=== PATIENT | male | born 1965 | race Caucasian/White ===

== ENCOUNTER 2018-03-14 08:54 | Emergency (ER) | payer OTHER ==
[~2018-03-14] VITALS: Ht 182.8 cm; Wt 96.2 kg
[2018-03-14] MEDS ORDERED: Motrin,Rufen800 MG PO (09:51)
== END 2018-03-14 10:03 | disposition home or self-care (01) ==
LOC: ED 08:54
DX: S46.911A Strain of unspecified muscle, fascia and tendon at shoulder and upper arm level, right arm, initial encounter (principal); X50.1XXA Overexertion from prolonged static or awkward postures, initial encounter; Y93.89 Activity, other specified; Y92.89 Other specified places as the place of occurrence of the external cause; Y99.8 Other external cause status

== ENCOUNTER → 2018-04-07 | Outpatient (CLI) | payer OTHER ==
[~2018-04-07] MED LIST: Motrin,Rufen800 MG PO
== END | disposition home or self-care (01) ==
LOC: MRI 09:00
DX: S43.401A Unspecified sprain of right shoulder joint, initial encounter (principal); S46.011A Strain of muscle(s) and tendon(s) of the rotator cuff of right shoulder, initial encounter; M19.011 Primary osteoarthritis, right shoulder; X58.XXXA Exposure to other specified factors, initial encounter; Y93.89 Activity, other specified; Y99.8 Other external cause status; Y92.89 Other specified places as the place of occurrence of the external cause

== ENCOUNTER → 2020-01-08 | Outpatient (CLI) | payer SELFPAY | END | disposition home or self-care (01) | LOC: COVID19 11:52 | PROVIDERS: ATTEND Nurse Practitioner Family | DX: Z20.828 Contact with and (suspected) exposure to other viral communicable diseases (principal) ==

== ENCOUNTER 2021-09-09 04:28 | Emergency (ER) | payer OTHER ==
[~2021-09-09] VITALS: Ht 172.7 cm; Wt 90.7 kg
== END 2021-09-09 04:59 | disposition home or self-care (01) ==
LOC: ED 04:28
DX: M25.561 Pain in right knee (principal)

== ENCOUNTER 2021-10-30 05:17 | Emergency (ER) | payer OTHER ==
[~2021-10-30] VITALS: Ht 180.3 cm; Wt 81.6 kg
[2021-10-30] MEDS ORDERED: ZITHROMAX250 MG PO (06:46)
[2021-10-30] MEDS ORDERED: PREDNISONE20 M1 PO (06:46)
== END 2021-10-30 06:48 | disposition home or self-care (01) ==
LOC: ED 05:17
DX: J40 Bronchitis, not specified as acute or chronic (principal); Z20.822 Contact with and (suspected) exposure to COVID-19

== ENCOUNTER 2022-02-26 08:53 | Emergency (ER) | payer OTHER ==
[~2022-02-26] VITALS: Ht 180.3 cm; Wt 91.6 kg
[~2022-02-26 08:53] MED LIST changes: +PREDNISONE20 M1 PO; +ZITHROMAX250 MG PO
[2022-02-26] MEDS ORDERED: LISINOPRIL5 MG PO (09:06)
[2022-02-26] MEDS ORDERED: IBU800 M2 PO (09:17)
[2022-02-26] MEDS ORDERED: CLINDAMYCIN HC300 MG PO (09:17)
== END 2022-02-26 09:27 | disposition home or self-care (01) ==
LOC: ED 08:53
DX: K02.9 Dental caries, unspecified (principal)

== ENCOUNTER 2023-01-12 22:04 | Emergency (ER) | payer OTHER ==
[~2023-01-12] VITALS: Ht 182.8 cm; Wt 97.5 kg
[~2023-01-12 22:04] MED LIST changes: +CLINDAMYCIN HC300 MG PO; +IBU800 M2 PO; +LISINOPRIL5 MG PO
[2023-01-12] MEDS ORDERED: Lopressor25 MG PO (22:14)
== END 2023-01-13 00:20 | disposition home or self-care (01) ==
LOC: ED 22:04
DX: J06.9 Acute upper respiratory infection, unspecified (principal); I10 Essential (primary) hypertension; R11.0 Nausea; R19.7 Diarrhea, unspecified; Z20.822 Contact with and (suspected) exposure to COVID-19

== ENCOUNTER 2023-04-17 10:22 | Emergency (ER) | payer OTHER ==
[~2023-04-17] VITALS: Ht 180.3 cm; Wt 95.3 kg
[~2023-04-17 10:22] MED LIST changes: +Lopressor25 MG PO
[2023-04-17] MEDS ORDERED: Ketorolac Tromethamine 30 MG/ML VIAL IM ONE (10:45)
[2023-04-17] MEDS ORDERED: Cyclobenzaprine Hydrochlorid 10 MG TAB PO ONE (10:45)
[2023-04-17] MEDS ORDERED: Acetaminophen/Oxycodone 5 MG/325 MG TABLET PO ONE (10:45)
[2023-04-17] MEDS ORDERED: MELOXICAM15 MG PO (10:48)
[2023-04-17] MEDS ORDERED: CYCLOBENZAPRINE10 MG PO (10:48)
== END 2023-04-17 10:55 | disposition home or self-care (01) ==
LOC: ED 10:22
DX: M54.50 Low back pain, unspecified (principal); I10 Essential (primary) hypertension

== ENCOUNTER 2023-06-14 08:28 | Emergency (ER) | payer OTHER ==
[~2023-06-14] VITALS: Ht 182.8 cm; Wt 95.3 kg
[~2023-06-14 08:28] MED LIST changes: +CYCLOBENZAPRINE10 MG PO; +MELOXICAM15 MG PO
[2023-06-14] MEDS ORDERED: CIPROFLOXACIN H10 ML OPH (08:58)
== END 2023-06-14 09:04 | disposition home or self-care (01) ==
LOC: ED 08:28
DX: H10.9 Unspecified conjunctivitis (principal); I10 Essential (primary) hypertension

== ENCOUNTER 2023-07-06 12:37 | Emergency (ER) | payer OTHER ==
[~2023-07-06] VITALS: Ht 182.8 cm; Wt 94.8 kg
[~2023-07-06 12:37] MED LIST changes: +CIPROFLOXACIN H10 ML OPH
[2023-07-06] MEDS ORDERED: methylPREDNISolone sod succ 125 MG VIAL IM ONE (14:35)
[2023-07-06] MEDS ORDERED: CYCLOBENZAPRINE10 MG PO (16:05)
== END 2023-07-06 16:28 | disposition home or self-care (01) ==
LOC: ED 12:37
DX: S16.1XXA Strain of muscle, fascia and tendon at neck level, initial encounter (principal); Z79.2 Long term (current) use of antibiotics; Z79.899 Other long term (current) drug therapy; X58.XXXA Exposure to other specified factors, initial encounter; Y93.89 Activity, other specified; Y92.89 Other specified places as the place of occurrence of the external cause; Y99.8 Other external cause status

== ENCOUNTER 2023-07-14 09:06 | Emergency (ER) | payer OTHER ==
[~2023-07-14] VITALS: Ht 182.8 cm; Wt 94.8 kg
[2023-07-14] MEDS ORDERED: Ondansetron 4 MG 2 TAB ED PACK PO SCH (10:05)
[2023-07-14] MEDS ORDERED: Lactated Ringer's Solution 1,000 ML IV ONE (10:05)
[2023-07-14 10:17] LABS: BASO # 0.1 10*3/uL (0.0-0.1); BASO % 0.7 % (0.0-1.0); EOS # 0.3 10*3/uL (0.0-0.4); EOS % 3.2 % (1.0-4.0); HEMATOCRIT 44.9 % (42.0-52.0); LYMPH # 3.8 10*3/uL (1.3-4.4); MEAN CELL VOLUME 94.5 fl (80.0-94.0); MEAN CORPUSCULAR HGB 32.8 pg (27.0-31.0); MEAN CORPUSCULAR HGB CONC 34.7 g/dl (33.0-37.0); MEAN PLATELET VOLUME 11.2 fl (9.6-12.3); MONO # 0.5 10*3/uL (0.1-1.0); MONO % 6.2 % (3.0-9.0); NEUT # 4.1 10*3/uL (2.3-7.9); NEUT % 46.7 % (47.0-73.0); PLATELET COUNT AUTOMATED 182 10*3/uL (130-400); RED BLOOD COUNT 4.75 10*6/uL (4.50-5.90); RED CELL DISTRI WIDTH 12.5 % (0-14.5); WHITE BLOOD COUNT 8.8 10*3/uL (4.8-10.8)
[2023-07-14 10:38] LABS: ALKALINE PHOSPHATASE 112 U/L (46-116); BUN 12 mg/dl (9-23); CHLORIDE 106 mmol/L (98-107); POTASSIUM 4.1 mmol/L (3.4-5.1); SGPT/ALT 69 U/L (5-49); TOTAL PROTEIN 6.6 gm/dL (6.0-8.0)
== END 2023-07-14 11:41 | disposition home or self-care (01) ==
LOC: ED 09:06
PROVIDERS: Emergency Medicine
DX: R11.2 Nausea with vomiting, unspecified (principal); R19.7 Diarrhea, unspecified; R10.9 Unspecified abdominal pain; F17.200 Nicotine dependence, unspecified, uncomplicated; Z79.2 Long term (current) use of antibiotics; Z79.899 Other long term (current) drug therapy

== ENCOUNTER 2023-11-01 17:04 | Emergency (ER) | payer OTHER ==
[~2023-11-01] VITALS: Wt 95.3 kg
[2023-11-01] MEDS ORDERED: LISINOPRIL5 MG PO (19:02)
[2023-11-01] MEDS ORDERED: Metoprolol Tartrate 25 MG TAB PO ONE (19:05)
[2023-11-02] MEDS ORDERED: LISINOPRIL 5 MG TAB PO SCH (10:00)
== END 2023-11-01 19:34 | disposition home or self-care (01) ==
LOC: ED 17:04
DX: Z76.0 Encounter for issue of repeat prescription (principal); R51.9 Headache, unspecified; I10 Essential (primary) hypertension; M19.90 Unspecified osteoarthritis, unspecified site; Z88.8 Allergy status to other drugs, medicaments and biological substances; Z98.890 Other specified postprocedural states

== ENCOUNTER 2024-02-22 08:37 | Emergency (ER) | payer OTHER ==
[~2024-02-22] VITALS: Ht 182.8 cm; Wt 95.3 kg
[2024-02-22] MEDS ORDERED: Acetaminophen/Oxycodone 5 MG/325 MG TABLET PO ONE (09:25)
[2024-02-22] MEDS ORDERED: TRAMADOL HCL50 MG PO (09:43)
== END 2024-02-22 10:09 | disposition home or self-care (01) ==
LOC: ED 08:37
DX: M17.0 Bilateral primary osteoarthritis of knee (principal); M25.562 Pain in left knee; M25.561 Pain in right knee; I10 Essential (primary) hypertension; Z88.8 Allergy status to other drugs, medicaments and biological substances; Z98.890 Other specified postprocedural states

== ENCOUNTER 2024-03-19 20:08 | Emergency (ER) | payer OTHER ==
[~2024-03-19] VITALS: Ht 177.8 cm; Wt 95.3 kg
[~2024-03-19 20:08] MED LIST changes: +TRAMADOL HCL50 MG PO
[2024-03-19] MEDS ORDERED: methylPREDNISolone sod succ 125 MG VIAL IM ONE (20:35)
[2024-03-19] MEDS ORDERED: COLCHICINE 0.6 MG TAB PO ONE (20:35)
[2024-03-19] MEDS ORDERED: PREDNISONE50 MG PO (20:38)
== END 2024-03-19 20:39 | disposition home or self-care (01) ==
LOC: ED 20:08
DX: M10.9 Gout, unspecified (principal); I10 Essential (primary) hypertension; M19.90 Unspecified osteoarthritis, unspecified site; Z88.8 Allergy status to other drugs, medicaments and biological substances; Z98.890 Other specified postprocedural states

== ENCOUNTER 2024-06-26 03:56 | Emergency (ER) | payer OTHER ==
[~2024-06-26] VITALS: Ht 177.8 cm; Wt 92.5 kg
[~2024-06-26 03:56] MED LIST changes: +PREDNISONE50 MG PO
[2024-06-26] MEDS ORDERED: Albuterol Sulf/Ipratropium 3 ML VIAL NEB ONE (04:20)
[2024-06-26] MEDS ORDERED: methylPREDNISolone sod succ 125 MG VIAL IM ONE (04:55)
== END 2024-06-26 04:53 | disposition home or self-care (01) ==
LOC: ED 03:56
DX: J40 Bronchitis, not specified as acute or chronic (principal); Z88.8 Allergy status to other drugs, medicaments and biological substances; Z79.899 Other long term (current) drug therapy; Z98.890 Other specified postprocedural states

== ENCOUNTER 2024-07-25 14:15 | Emergency (ER) | payer OTHER ==
[~2024-07-25] VITALS: Wt 95.3 kg
[2024-07-25] MEDS ORDERED: Acetaminophen/Oxycodone 5 MG/325 MG TABLET PO ONE (15:20)
[2024-07-25 15:39] LABS: BASO # 0.1 10*3/uL (0.0-0.1); BASO % 0.3 % (0.0-1.0); EOS # 0.1 10*3/uL (0.0-0.4); EOS % 0.6 % (1.0-4.0); HEMATOCRIT 46.5 % (42.0-52.0); MEAN CELL VOLUME 93.2 fl (80.0-94.0); MEAN CORPUSCULAR HGB 32.5 pg (27.0-31.0); MEAN CORPUSCULAR HGB CONC 34.8 g/dl (33.0-37.0); MEAN PLATELET VOLUME 10.2 fl (9.6-12.3); MONO # 0.8 10*3/uL (0.1-1.0); MONO % 4.5 % (3.0-9.0); NEUT # 14.2 10*3/uL (2.3-7.9); NEUT % 79.6 % (47.0-73.0); PLATELET COUNT AUTOMATED 238 10*3/uL (130-400); RED BLOOD COUNT 4.99 10*6/uL (4.50-5.90); RED CELL DISTRI WIDTH 12.5 % (0-14.5); WHITE BLOOD COUNT 17.8 10*3/uL (4.8-10.8)
[2024-07-25 16:03] LABS: BUN 13 mg/dl (9-23); CHLORIDE 105 mmol/L (98-107); POTASSIUM 4.2 mmol/L (3.4-5.1); URIC ACID 8.2 mg/dL (3.7-9.2)
[2024-07-25] MEDS ORDERED: VIBRAMYCIN100 MG PO (17:56)
[2024-07-25] MEDS ORDERED: INDOMETHACIN50 MG PO (17:56)
[2024-07-25] MEDS ORDERED: Doxycycline Hyclate 100 MG CAPSULE PO ONE (18:00)
== END 2024-07-25 18:06 | disposition home or self-care (01) ==
LOC: ED 14:15
PROVIDERS: Nurse Practitioner Family
DX: M10.061 Idiopathic gout, right knee (principal); D72.829 Elevated white blood cell count, unspecified; I10 Essential (primary) hypertension; Z79.899 Other long term (current) drug therapy; Z88.8 Allergy status to other drugs, medicaments and biological substances; Z98.890 Other specified postprocedural states

== ENCOUNTER 2024-10-14 03:49 | Emergency (ER) | payer OTHER ==
[~2024-10-14] VITALS: Ht 180.3 cm; Wt 92.5 kg
[~2024-10-14 03:49] MED LIST changes: +INDOMETHACIN50 MG PO; +VIBRAMYCIN100 MG PO
[2024-10-14] MEDS ORDERED: PREDNISONE50 MG PO (06:17)
== END 2024-10-14 06:38 | disposition home or self-care (01) ==
LOC: ED 03:49
DX: B34.9 Viral infection, unspecified (principal); Z20.822 Contact with and (suspected) exposure to COVID-19; Z88.8 Allergy status to other drugs, medicaments and biological substances; Z79.899 Other long term (current) drug therapy; Z98.890 Other specified postprocedural states

== ENCOUNTER 2024-11-01 17:34 | Emergency (ER) | payer OTHER ==
[~2024-11-01] VITALS: Ht 177.8 cm; Wt 95.3 kg
[2024-11-01 19:59] LABS: BASO # 0.1 10*3/uL (0.0-0.1); BASO % 0.3 % (0.0-1.0); EOS # 0.2 10*3/uL (0.0-0.4); EOS % 1.0 % (1.0-4.0); MEAN CELL VOLUME 95.8 fl (80.0-94.0); MEAN CORPUSCULAR HGB 32.5 pg (27.0-31.0); MEAN PLATELET VOLUME 11.2 fl (9.6-12.3); MONO # 1.0 10*3/uL (0.1-1.0); MONO % 6.8 % (3.0-9.0); NEUT # 10.7 10*3/uL (2.3-7.9); NEUT % 74.5 % (47.0-73.0); NUCLEATED RED BLOOD CELL 0.0 % (0.0-0.0); NUCLEATED RED BLOOD CELL 0.0 10*3/uL (0.0-0.0); PLATELET COUNT AUTOMATED 210 10*3/uL (130-400); RED CELL DISTRI WIDTH 12.5 % (0-14.5)
[2024-11-01] MEDS ORDERED: Acetaminophen/Oxycodone 5 MG/325 MG TABLET PO ONE ×2 (20:00→21:25)
[2024-11-01 20:19] LABS: BUN 11 mg/dl (9-23)
[2024-11-01] MEDS ORDERED: PREDNISONE20 M1 PO (21:21)
[2024-11-01] MEDS ORDERED: predniSONE 20 MG TAB PO ONE (21:25)
== END 2024-11-01 21:41 | disposition home or self-care (01) ==
LOC: ED 17:34
PROVIDERS: Nurse Practitioner Family
DX: M10.071 Idiopathic gout, right ankle and foot (principal); I10 Essential (primary) hypertension; M19.90 Unspecified osteoarthritis, unspecified site; Z88.8 Allergy status to other drugs, medicaments and biological substances; Z98.890 Other specified postprocedural states

== ENCOUNTER 2024-11-08 18:08 | Emergency (ER) | payer OTHER ==
[~2024-11-08] VITALS: Ht 180.3 cm; Wt 94.8 kg
[2024-11-08] MEDS ORDERED: KAPSPARGO SPRIN25 MG PO (18:54)
[2024-11-08] MEDS ORDERED: PROZAC20 MG PO (18:54)
[2024-11-08] MEDS ORDERED: RESTORIL15 MG PO (18:54)
[2024-11-08] MEDS ORDERED: SEROQUEL25 MG PO (18:55)
[2024-11-08 19:02] LABS: BILIRUBIN Negative (Negative); BLOOD Negative (Negative); CLARITY Clear (Clear); COLOR Yellow (Yellow); KETONE Negative (Negative); LEUKO ESTERASE Negative (Negative); NITRITE Negative (Negative); PH 5.5 (4.5-8.0); SPECIFIC GRAVITY <= 1.005 (1.001-1.030); UROBILINOGEN 0.2 E.U./dl (0.0-1.0)
[2024-11-08 19:19] LABS: BACTERIA TRACE
== END 2024-11-08 19:27 | disposition home or self-care (01) ==
LOC: ED 18:08
PROVIDERS: Nurse Practitioner Family
DX: R31.9 Hematuria, unspecified (principal); Z88.8 Allergy status to other drugs, medicaments and biological substances; Z79.899 Other long term (current) drug therapy; Z98.890 Other specified postprocedural states

== ENCOUNTER 2024-11-28 08:42 | Emergency (ER) | payer OTHER ==
[~2024-11-28] VITALS: Ht 182.8 cm; Wt 97.5 kg
[~2024-11-28 08:42] MED LIST changes: +KAPSPARGO SPRIN25 MG PO; +PROZAC20 MG PO; +RESTORIL15 MG PO; +SEROQUEL25 MG PO
[2024-11-28] MEDS ORDERED: Ondansetron Hydrochloride 4 MG TAB PO ONE (09:10)
[2024-11-28] MEDS ORDERED: LOMOTIL 2.5-0.1 EACH PO (10:10)
[2024-11-28] MEDS ORDERED: Meclizine25 MG PO (10:10)
[2024-11-28] MEDS ORDERED: Ondansetron4 MG PO (10:10)
== END 2024-11-28 10:17 | disposition home or self-care (01) ==
LOC: ED 08:42
DX: J06.9 Acute upper respiratory infection, unspecified (principal); R19.7 Diarrhea, unspecified; R42 Dizziness and giddiness; H93.13 Tinnitus, bilateral; R51.9 Headache, unspecified; Z88.8 Allergy status to other drugs, medicaments and biological substances; Z79.899 Other long term (current) drug therapy; Z98.890 Other specified postprocedural states; Z20.822 Contact with and (suspected) exposure to COVID-19

== ENCOUNTER 2024-12-29 15:27 | Emergency (ER) | payer OTHER ==
[~2024-12-29] VITALS: Ht 182.8 cm; Wt 91.2 kg
[~2024-12-29 15:27] MED LIST changes: +LOMOTIL 2.5-0.1 EACH PO; +Meclizine25 MG PO; +Ondansetron4 MG PO
[2024-12-29] MEDS ORDERED: PENICILLIN VK500 MG PO (16:22)
[2024-12-29] MEDS ORDERED: PENICILLIN V POTASSIUM 500 MG TAB PO ONE (16:25)
== END 2024-12-29 16:34 | disposition home or self-care (01) ==
LOC: ED 15:27
DX: K08.89 Other specified disorders of teeth and supporting structures (principal); Z88.8 Allergy status to other drugs, medicaments and biological substances; I10 Essential (primary) hypertension; M10.9 Gout, unspecified; M19.90 Unspecified osteoarthritis, unspecified site